=== PATIENT | male | born 1955 | race Caucasian/White ===

== ENCOUNTER 2016-10-24 08:49 | Day surgery (SDC) | payer OTHER, MEDICAID ==
[~2016-10-24] VITALS: Ht 170.2 cm; Wt 113.9 kg
[~2016-10-24 08:49] MED LIST: GLIP5TAB82 PO; LANT3I SC; LOSA1TAB21 PO; METF500T4 PO
[2016-10-24] MEDS ORDERED: METFORMIN (09:27)
[2016-10-24] MEDS ORDERED: ALBUTEROL INHALER (09:27)
[2016-10-24] MEDS ORDERED: ATORVASTATIN (09:27)
[2016-10-24] MEDS ORDERED: LANTUS (09:27)
[2016-10-24] MEDS ORDERED: FLOVENT INHALER (09:27)
[2016-10-24] MEDS ORDERED: HYDROCHLOROTHIAZIDE (09:27)
[2016-10-24] MEDS ORDERED: HUMALOG (09:27)
[2016-10-24] MEDS ORDERED: LEVOTHYROXINE (09:27)
[2016-10-24] MEDS ORDERED: COZAAR (09:27)
[2016-10-24] MEDS ORDERED: VENTOLIN INHALER (09:27)
[2016-10-24] MEDS ORDERED: ASPIRIN (09:28)
[2016-10-24 09:45] VITALS: Ht 170.2 cm; Wt 113.9 kg
[2016-10-24 10:01] VITALS: BP 148/69; PULSE 71; RESP 21
[2016-10-24] MEDS ORDERED: PROPOFOL 40 ML ONE (10:03)
[2016-10-24] MEDS ORDERED: LIDOCAINE 2% (SDV) 5 ML INJ ONE (10:03)
--- NOTE | 2016-10-24 10:37 | OPPN ---
Date/Time of Note Date/Time of Note DATE: 10/24/16 TIME: 10:35 Operative Report Preoperative Diagnosis History of colon polyps Postoperative Diagnosis Small sigmoid colon polyp was removed Internal hemorrhoids Operation/Procedure Performed Colonoscopy and polypectomy Anesthesia Type: MAC Estimated blood loss: none Transfusion Required: no Specimens Sigmoid polyp Grafts/Implants: none Complications: no QUENTIN BOYD MD Oct 24, 2016 10:37
[2016-10-24 10:55] VITALS: BP 118/63; RESP 18
--- NOTE | 2016-10-24 10:59 | GILP ---
DATE OF PROCEDURE: 10/24/2016 PROCEDURE PERFORMED: Colonoscopy and polypectomy. PREOPERATIVE DIAGNOSIS: History of colon polyps. POSTOPERATIVE DIAGNOSES: 1. Colonoscopy all the way to the cecum. 2. Small sigmoid colon polyp was removed using the snare and electrocautery. 3. Internal hemorrhoids. INDICATION: Mr. Donald Camilo is a 61-year-old male patient who had colon polyps. The patient needed a followup colonoscopy. The procedure and possible complications were well explained to the patient. The patient understood and consented to the procedure. DESCRIPTION OF PROCEDURE: Under influence of anesthesia, the colonoscope was carefully introduced in the rectum. Under direct vision, it was advanced all the way to the cecum. FINDINGS: The patient had a sigmoid colon polyp and it was removed using the snare and electrocautery. He was noted to have internal hemorrhoids. He tolerated the procedure very well. There was no complication from the procedure. At the end of procedure, he was awake with stable vital signs and he was discharged home in the care of his family. IMPRESSION: Please see postop diagnoses. PLAN: 1. Await histopathology report. 2. Next screening colonoscopy in 5 years. Dictated By: MD KIMBERLEY Overton/haleigh/santo /Document#: [id number] CC: Kari Yates MD;*[facility]*
== END 2016-10-24 12:54 | disposition home or self-care (01) ==
LOC: GIL 08:49
PROVIDERS: ATTEND Internal Medicine Gastroenterology
DX: D12.5 Benign neoplasm of sigmoid colon (principal); E11.9 Type 2 diabetes mellitus without complications; I10 Essential (primary) hypertension; E78.5 Hyperlipidemia, unspecified; E03.9 Hypothyroidism, unspecified; E66.01 Morbid (severe) obesity due to excess calories; Z68.39 Body mass index [BMI] 39.0-39.9, adult
CPT/HCPCS: 82962; 88305